=== PATIENT | female | born 2005 | race Caucasian/White ===

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

== ENCOUNTER 2024-09-02 10:26 | Emergency (ER) | payer OTHER, BC, SELFPAY ==
[2024-09-02 10:39] VITALS: BP 120/80; PULSE 89; TEMP 36.9; O2SAT 100
[2024-09-02 10:54] LABS: EDSTREPNEGPOS1 Negative (Negative)
--- NOTE | 2024-09-02 11:27 | ED.URI ---
HPI - URI/Sore Throat General Chief Complaint: Upper Respiratory Infection Stated Complaint: sorethroat Time Seen by Provider: 09/02/24 11:00 Source: patient and RN notes reviewed Mode of arrival: ambulatory Limitations: no limitations History of Present Illness HPI Narrative: 19-year-old female presents Express Care complaining of sore throat since this morning. Patient's reports currently seen an ENT for throat problem a she states she feels like she consult has a lump in her throat. She currently takes Pepcid and omeprazole along with Flonase prescribed by her ENT to help with her symptoms. Patient states this is different she reports her throat is sore and noticed white bumps on the roof of her mouth. Patient denies the bumps being painful. Patient denies any history of herpes the reported recently went on a trip for her per day and shared multiple drinks amongst people. Patient denies any other upper respiratory symptoms, cough, fever, chest pain, shortness of breath, or any other symptoms. Patient has not taken anything [id number]. Patient recently stated she had a scare for STD exposure he was seen by OBGYN and had testing done was told she did not have any STDs. Patient states she was not tested for herpes though. Patient denies any new concerns for STDs. Related Data Allergies Allergy/AdvReac Type Severity Reaction Status Date / Time metronidazole AdvReac Mild Palpitation Verified 09/02/24 10:38 s Review of Systems Review of Systems: CONSTITUTIONAL: Denies fever, chills, or sweats. EYES: Denies visual changes, redness, or discharge. ENT: Denies rhinorrhea, congestion, or otalgia. Positive for sore throat. CARDIOVASCULAR: Denies chest pain, palpitations, or edema. RESPIRATORY: Denies cough or dyspnea. GASTROINTESTINAL: Denies abdominal pain, nausea, vomiting, or diarrhea. GENITOURINARY: Denies dysuria or hematuria. SKIN: Denies rash or itching. MUSCULOSKELETAL: Denies back pain, joint pain, or myalgia. NEUROLOGIC: Denies headache, numbness, or weakness. PSYCHIATRIC: Denies anxiety or depression. All other systems reviewed are negative, except as documented in HPI. [facility], [facility] Past Medical History Medical History Allergic rhinitis Voice fatigue Throat clearing Sore throat Hoarseness of voice GERD (gastroesophageal reflux disease) Anxiety Family History Family History Other Anemia Anxiety Carcinoma of colon Cerebrovascular accident Hyperlipidemia Melanoma Myocardial infarct Seizure Social History Social History Smoking status: Never smoker Alcohol intake: never Do You Feel Safe in your Home?: Yes Lack of Transportation: No Lack of Food: Never True Current Housing: I Have Housing Concerned About Future Housing: No Difficulty Paying Gas/Electric Bills: No Difficulty Paying for Meds: No Education: High School Diploma/GED Difficulty w/ Childcare or Family Care: No Living arrangements: with family Comments At the time of my signature, I reviewed and agree with the nursing past medical, surgical, social, and family history. There is no relevant family history pertinent to the patient complaint. Exam Narrative: GENERAL: This is a well-nourished, well-developed adult, in no apparent distress. They are non ill-appearing, nontoxic appearing. HEAD: normocephalic, atraumatic. EYES: Sclera clear/white. Conjunctiva normal. Vision is grossly intact. Extraocular movements intact EARS: External ears normal, auditory canals clear and without drainage, TMs normal without perforation. Hearing grossly intact. NOSE: External nose normal with no obvious nasal discharge, nasal turbinates without redness, no rhinorrhea. THROAT: Mucous membranes moist, posterior pharynx with erythema, no swelling. Tonsils 2+ without redness or swelling. Uvula midline. Normal movement is soft palate. OROPHARYNX: There is vesicular grayish white papule papulovesicular lesions present to the patient's hard palate and soft palate. Lesions are nontender. There are less than 10. No lesions on posterior pharynx or tonsils. Good oral hygiene, no missing teeth, no gingivitis, tongue is normal. NECK: Neck supple, non-tender without lymphadenopathy, masses or thyromegaly. CARDIOVASCULAR: Regular rate and rhythm without murmurs, gallops, or rubs. RESPIRATORY: Clear to auscultation. Breath sounds equal bilaterally. No wheezes, rales, or rhonchi. SKIN: warm, Dry, intact with no suspicious lesions or rash, good texture and turgor. NEURO: awake, alert, and oriented to person, place and time. There were no obvious focal neurologic abnormalities. EXTREMITIES: No joint tenderness, effusion, or edema noted. BACK: Nontender without deformity. No CVA tenderness. Course Course Emergency Course: Portions of this record may have been created with voice recognition software Level of Care: Express Care Visit Vital Signs Vital signs: Vital Signs Temperature 98.4 F 09/02/24 10:39 Pulse Rate 89 09/02/24 10:39 Blood Pressure 120/80 09/02/24 10:39 Pulse Oximetry 100 09/02/24 10:39 Oxygen Delivery Room Air 09/02/24 10:39 Temperature 98.4 F 09/02/24 10:39 Pulse Rate 89 09/02/24 10:39 Blood Pressure 120/80 09/02/24 10:39 Pulse Oximetry 100 09/02/24 10:39 Oxygen Delivery Room Air 09/02/24 10:39 Reviewed MDM - URI/Sore Throat MDM Narrative Medical decision making narrative: Rapid strep is negative. Throat culture is pending. Given patient's recent risk factors, it was elected to swab for herpes simplex virus. Herpes virus culture is pending. Through shared decision it was elected the patient will decide if she would like to start suppressive therapy if she is concerned if it is herpes infection since it cannot be excluded and the culture will not result in time to start suppressive therapy. Advised patient she has 72 hours to start treatment. Acyclovir is sent to the pharmacy. Symptoms are consistent with herpangina infection. Discussed physical exam findings. Advised supportive measures and signs/symptoms to go to the ER. Pt is appropriate for outpt treatment and f/u. Differential Diagnosis Differential diagnosis: Likely upper respiratory infection, viral infection, pharyngitis and other (herpangina, herpes simplex virus) Lab Data Attestation: I reviewed the patient's lab results. Labs: Lab Results 09/02/24 Range/Units 10:52 POC Grp A Strep Screen Negative (Negative) Critical Care Time Critical Care Time Critical Care Time: No Discharge Plan Discharge Clinical Impression: Herpangina Patient Disposition: Home Condition: Stable Instructions: Pharyngitis (ED), Oral Herpes Infection (ED) Additional Instructions: Your rapid strep swab was negative today at [facility]. You will be notified in a few days if the culture comes back positive for strep, and appropriate antibiotics will be called in for you at that time. Your symptoms are likely due to a viral illness, which is not treated with antibiotics. Your Herpes culture is pending and you will be contacted with the results when it has resulted. Your symptoms are likely related to herpangina which is caused by the coxsackievirus. Take take acyclovir as directed. Viral symptoms can be present for up to 10-14 days. Take Tylenol or ibuprofen for fever or pain. Rest and stay hydrated. Practice good hand hygiene and avoid sharing drinks. Follow up with your PCP in 3-5 days if symptoms are not improving. Go to the ER immediately if you develop difficulty breathing or swallowing Patient Language: [place] Prescriptions: New acyclovir 400 mg tablet 400 mg PO TID 7 Days Qty: 21 0RF No Action fluticasone propionate 50 mcg/actuation spray,suspension 1 spray intranasal DAILY 30 Days Qty: 16 2RF Rx Instructions: administer into each nostril omeprazole 40 mg capsule,delayed release(DR/EC) 40 mg PO DAILY 30 Days Qty: 30 2RF famotidine 40 mg tablet 40 mg PO DAILY 30 Days Qty: 30 2RF Rx Instructions: to be used with meals at bed time Follow-up/Referrals: Quan Andrew MD [Primary Care Provider] - Time of Disposition: 11:13
--- OUTSIDE RECORDS SUMMARY | 2024-09-02 11:36 | XMS_ITS | Clinical Summary ---
Author Organization [facility] Address [address] [place] [address] Care Team Providers Care Electric Installer Name Role Phone Whitney Rajput Primary Care Provider [phone] Allergies No known active allergies Medications norethindrone-e .estradioL-iron (LO LOESTRIN FE) 1 mg-10 mcg (24)/10 mcg (2) tablet per tablet Take 1 tablet by mouth daily 84 tablet 3 5 Active clindamycin (CLEOCIN) 2 % vaginal creamIndication s:Bacterial Vaginosis 1 applicator full in vagina at bedtime once 40 g 5 Active Additional Information Patient not taking.Reported on 07/21/2024 omeprazole (PriLOSEC) 20 mg capsule Take 1 capsule (20 mg total) by mouth daily 5 Active Active Problems Problem Noted Date Diagnosed Date Hallux valgus 09/04/2016 Short stature (child) 02/21/2016 Overview (12/08/2022): Short compared to her 12 yr old, triplet sisters. Last Assessment & Plan: Good interval linear growth (two inches in six months) and progression of pubertal features; bone age predicts adult height ~ 5 feet 6- 7 inches (lower end of target height range based upon parents' adult heights); 1. Reassurance. 2. Expectant observation. 3. Return appointment in one year, sooner if questions or concerns arise. 4. I reviewed my impression and recommendations with mother at the time of the office visit and she was in agreement. Encounters Date Type Department Care Team Description 07/22/2024 Results [facility] [address] [place] [phone] Myra Ramírez, MARICEL Vaginitis panel Vaginal, N. gonorrhoeae/C. trachomatis Amplification Vaginal, RPR Blood, Additional followed-up results: 3 07/21/2024 7:20 PM CDT - 07/21/2024 11:59 PM CDT Hospital Encounter [address] [phone] Discharge Disposition: Discharge to home or self care 07/21/2024 3:30 PM CDT [facility] Visit [facility] [address] [place] [phone] Myra Ramírez NP Sweating increase (Primary Dx); Vaginal odor; Vaginal discharge; Routine screening for STI (sexually transmitted infection); Situational anxiety from Last 3 Months Immunizations Immunization Administration Dates Next Due DTaP 09/08/2008, 5,02/16/2004,12/16,2003 HPV, Quadrivalent 08/31/2015,05/03/2015,02/16/20 15 Hep A, Pediatric 12/28/2006,07/13/2005 Hep B, Adolescent or Pediatric 4,2003,2003,08/26 Hib (PRP-D) 11/12/2004, 4,2003,10/14 IPV 09/08/2008, 4,2003,10/14 Influenza, Quadrivalent, Suzy l Culture-based MDCK, Antibiotic Free, Intramuscular 02/19/2018 Influenza, Trivalent, IM (MDV) 02/02/2015 Influenza, Unspecified 02/03/2015,12/28/2006 MMR 09/06/2007,08/18/2004 Meningococcal MCV4P (Menactra) 10/10/2019,2014 PPD TEST 08/18/2004 Pneumococcal Conjugate, Unspecified 07/25,02/16/2004,2003,10/14 Tdap 02/15/2015 Varicella 09/06/2007,11/12/2004 Surgical History Surgery Date Site/Laterality Comments WISDOM TOOTH EXTRACTION 03/26/2020 - 03/25/2021 Medical History Medical History Date Comments Anxiety 2019 Acne Irregular menses Family History Medical History Relation Name Comments Stroke Maternal Grandfather Skin cancer Mother Cancer Mother's Sister Valarie Pastor Colon cancer Mother's Sister Valarie Pastor Lymphoma Mother's Sister Valarie Pastor Breast cancer Paternal Grandmother Linda Kemp Cancer Paternal Grandmother Linda Kemp Pneumonia Sister 1 Relation Name Status Comments Maternal Grandfather Mother Mother's Sister Valarie Pastor Paternal Grandmother Linda Kemp Sister 1 Alive Sister 2 Alive Sister 3 Alive Social History Tobacco Use Types Packs/Day Years Used Date Smoking Tobacco: Never Smokeless Tobacco: Never Tobacco Cessation:Counseling Given: Not Answered Comments:n/a, dont consume tobacco AUDIT-C Answer Date Recorded Q1: How often do you have a drink containing alc ohol? 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 Gender Identity Female 07/19/2022 3:02 PM CDT Sexual Orientation Not on file Occupation Industry Job Start Date Job End Date student Not on file Not on file Not on file Obstetrics History Para Term AB IAB SAB Ectopic Multiple Livin g Live Births 0 0 0 0 0 0 0 0 0 0 0 Last Filed Vital Signs Vital Sign Reading Time Taken Comments Blood Pressure 122/80 07/21/2024 3:32 PM CDT Pulse - - Temperature - - Respiratory Rate - - Oxygen Saturation - - Inhaled Oxygen Concentration - - Weight 60.8 kg (134 lb 1.6 oz) 07/21/2024 3:32 P M CDT Height 174 cm (5' 8.5) 07/21/2024 3:32 PM CDT Body Mass Index 20.09 07/21/2024 3:32 PM CDT Plan of Treatment Health Maintenance Due Date Last Done Comments Cervical Cancer Screening 2003 Depression Screening 2003 Meningococcal B Vaccine (1 o f 2 - Standard) 2019 Covid-19 Vaccine (2 - 2023-2 5 season) 2023 2020 Influenza Vaccine (Season Ended) 2024 02/19/2018, 02/03/2015, 02/02/2015, Additional history exists DTaP/Tdap/Td Vaccine (7 - Td or Tdap) 02/15/2025 02/15/2015, 09/08/2008, 02/13/2005, Additional history exists Regular Well Visit/Exam 18-64 04/22/2025 04/22/2024 Chlamydia and Gonorrhea (GC/ CT) Screening 07/21/2025 07/21/2024, 04/22/2024, 12/08/2022 Hepatitis B Screening Completed 02/16/2004 , 2003, 2003, Additional history exists Pneumococcal vaccine <65 Completed 005, 02/16/2004, 2003, Additional history exists Varicella Vaccines Completed 09/06/2007, 11/12/2004 HPV Vaccines Completed 08/31/2015, 10/2015, 02/15/2015 Meningococcal Vaccine Completed 10/10/2019, 015 Hepatitis C Screening Completed 07/21/2024 Procedures Procedure Name Priority Date/Time Associated Diagnosis Comments HEPATITIS B SURFACE ANTIGEN Routine 07/21/2024 4:02 PM CDT Routine screening for STI (sexually transmitted infection) HEPATITIS C ANTIBODY Routine 07/21/2024 4:02 PM CDT Routine screening for STI (sexually transmitted infection) HIV 1/2 ANTIBODY PLUS P24 ANTIGEN Routine 07/21/2024 4:02 PM CDT Routine screening for STI (sexually transmitted infection) RPR Routine 07/21/2024 4:02 PM CDT Routine screening for STI (sexually transmitted infection) N. GONORRHOEAE/C. TRACHOMATIS AMPLIFICATION Routine 07/21/2024 4:02 PM CDT Routine screening for STI (sexually transmitted infection) VAGINITIS PANEL Routine 07/21/2024 4:02 PM CDT Routine screening for STI (sexually transmitted infection) from Last 3 Months Results * N. gonorrhoeae/C. trachomatis Amplification Vaginal (07/21/2024 4:02 PM CDT) C. trachomatis Not Detected N. gonorrhoeae Not Detected [facility] Comment: Interpretive Data This assay detects Chlamydia trachomatis and Neisseria gonorrhoeae by nucleic acid amplification testing (NAAT). This assay has been cleared by the [place] Food and Drug administration. The performance characteristics of this test have been verified by the [facility] laboratory. The performance characteristics of this test have not been evaluated in individuals less than 14 years of age. Current Interpretive Data was last revised on 2023. Vaginal (None) 07/21/2024 4: 02 PM CDT 07/21/2024 6:56 PM CDT us Myra Ramírez NP LAB MICROBIOLOGY - GENERAL ORDERABLES Final Result Performing Organization Address City/[facility]/ZIP Co de Phone Number [facility] [address] Department [place] [address] * Vaginitis panel Vaginal (07/21/2024 4:02 PM CDT) Bacterial Vaginosis Not Detected Not Detected Comment:A negative result do es not preclude a possible infection. Results should be considered in conjunction with clinical presentation to determine the disease status. Fe group Not Detected Not Detected [facility] Fe glabrata/ krusei Not Detected Not Detected [facility] Trichomonas DNA Not Detected Not Detected [facility] Vaginal 07/21/2024 4:02 PM CDT 07/21/2024 6:53 PM CDT us Myra Ramírez NP LAB MICROBIOLOGY - GENERAL ORDERABLES Final Result Performing Organization Address City/[facility]/ZIP Co de Phone Number [facility] [address] [place] [address] * HIV 1/2 Antibody plus p24 Antigen Blood (07/21/2024 4:02 PM CDT) [facility] HIV 1/2 ab + p24 ag Nonreactive Nonreactive Comment: Nonreactive for HIV-1 antigen and HIV-1/HIV-2 antibodies. No laboratory evidence of HIV infection. If acute HIV infection is suspected, consider testing for HIV-1 RNA. Blood 07/21/2024 4:02 PM CDT 07/21/2024 7:12 PM CDT us Myra Ramírez NP LAB MICROBIOLOGY - GENERAL ORDERABLES Final Result Performing Organization Address [facility] Co de Phone Number [facility] [address] [facility] [place] [address] * Hepatitis C antibody Blood (07/21/2024 4:02 PM CDT) [facility] Hep C Ab Nonreactive Nonreactive Comment: Interpretive Data Nonreactive: Antibodies to HCV not detected. Does NOT exclude the possibility of recent exposure to HCV. Equivocal: Equivocal for HCV antibodies. Supplemental molecular testing will be automatically performed to determine infection status in accordance with current CDC screening recommendations. Reactive: Positive for HCV antibodies. This may represent current or past HCV infection. Supplemental molecular testing will be automatically performed to determine current infection status in accordance with current CDC screening recommendations. Interpretive data was last revised on 2019. Blood 07/21/2024 4:02 PM CDT 07/21/2024 7:13 PM CDT us Myra Ramírez NP LAB MICROBIOLOGY - GENERAL ORDERABLES Final Result Performing Organization Address City/[facility]/ZIP Co de Phone Number [facility] [address] [facility] [place] [address] * RPR Blood (07/21/2024 4:02 PM CDT) [facility] RPR Nonreactive Nonreactive Comment:Testing performed by : [facility], [address] [facility], [place]., [address] Blood 07/21/2024 4:02 PM CDT 07/21/2024 11:29 PM CDT us Myra Ramírez NP LAB MICROBIOLOGY - GENERAL ORDERABLES Final Result [facility] [address] Department [place] [address] * Hepatitis B Surface Antigen Blood (07/21/2024 4:02 PM CDT) HepBsAg Nonreactive Nonreactive Blood 07/21/2024 4:02 PM CDT 07/21/2024 7:13 PM CDT us Myra Ramírez NP LAB MICROBIOLOGY - GENERAL ORDERABLES Final Result Performing Organization Address City/State/[facility] Co de Phone Number [facility] [address] [place] [address] from Last 3 Months Insurance [employer] Member Subscriber Plan / Payer (Ef fective 2022-Present) Name:Smiley Castañeda Relation to Subscriber:Child Name:SHELBY PASTOR Date of :1972 (Home) Address: [facility] [place] [address] [place] [address] Payer ID:[id number] (NAIC) Type:[facility] Address: [facility] [id number] [address] [facility] ACC[facility] Member Subscriber Plan / Payer (Ef fective 2022-Present) Name:Smiley Castañeda Raghu Relation to Subscriber:Child Name:Shelby Pastor Date of :1972 (Home) Address: [address] [place] [address] Payer ID:[id number] (NAIC) Type:[facility] Address: [address] Care Teams Electric Installer Relationship Specialty Start Date End Date Whitney Rajput [address] [facility] [address] [place] [address] PCP - General Drill Runner 12/08/22
--- OUTSIDE RECORDS SUMMARY | 2024-09-02 11:36 | XMS_ITS | Encounter Summary ---
Author Organization [facility] Healthcare Address [address] [place] [address] Care Team Providers Care Nutrition Professor Name Role Phone Whitney Rajput Primary Care Provider [phone] Encounter Details Date Type Department Care Team (Late st Contact Info) Description 07/22/2024 Results [facility] [place] [address] [place] [address] [address] [place] [address] Myra Ramírez, MARICEL [address] [place] [address] [address] [place] [address] Vaginitis panel Vaginal, N. gonorrhoeae/C. trachomatis Amplification Vaginal, RPR Blood, Additional followed-up results: 3 Social History Tobacco Use Types Packs/Day Years Used Date Smoking Tobacco: Never Smokeless Tobacco: Never Comments:n/a, dont consume t obacco AUDIT-C Answer Date Recorded Q1: How often do you have a drink containing alc ohol? 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 [address] [place] [address] PCP - General Clinical Lab Assistant 12/08/22 documented as of this encounter
--- OUTSIDE RECORDS SUMMARY | 2024-09-02 11:36 | XMS_ITS | Clinical Summary ---
Author Organization [facility] Address [address] [place] [address] Care Team Providers Care Genetic Scientist Name Role Phone Vita Cho MD Primary Care Provider [phone] Source Comments [facility],non-owned Affiliates and Associated Physician Practices is amultiple site organization consisting of ambulatory clinics and hospital sitesin [place], [place], [place] and [place]. This disclosure is being madepursuant to the Care Everywhere program and may not contain all information available regarding this patient. Last updated 17.[facility] Allergies No known active allergies Medications * Be aware that medications may not be up to date on this document. Alwaysverify current medications with the patient. No known medications Active Problems Problem Noted Date Diagnosed Date Hallux valgus 09/04/2016 Short stature (child) 02/21/2016 Overview (02/21/2016): Short compared to her 12 yr old, triplet sisters. Assessment & Plan (08/28/2016 4:00 PM CDT): Good interval linear growth (two inches in six months) and progression of pubertal features; bone age predicts adult height ~ 5 feet 6-7 inches (lower end of target height range based upon parents' adult heights); 1. Reassurance. 2. Expectant observation. 3. Return appointment in one year, sooner if questions or concerns arise. 4. I reviewed my impression and recommendations with mother at the time of the office visit and she was in agreement. 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 1. Bone age radiograph. 2. Expectant observation. 3. I reviewed my impression and recommendations with mother at the time of the office visit and she was in agreement. 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 (AF LURIA, FLUZONE TRIVALENT; 6MO+) (IIV3) 02/02/2015 DTaP VACCINE IM (6wk-6yrs) 09/08/2008,,02/16/2004,12/16,2003 HEP A PEDS 2 DOSE 12/28/2006,07/13/2005 HEP B VACCINE, PED/ADOL 02/16/2004,12/16,2003,08/26 HIB BOOSTER 11/12/2004, 4,2003,10/14 Human Papilloma Virus Jovita valent Vaccine 08/31/2015,05/03/2015,02/15/2015 INFLUENZA VACCINE 02/03/2015,12/28/2006 INFLUENZA VACCINE, CELL CULT URE, QUADR. (FLUCELVAX QUADRIVALENT; 6MO+), 0.5 ML (CCIIV4) 02/19/2018 MENINGOCOCCAL ACWY (MCV4P) VAC IM 10/10/2019, MMR 09/06/2007,08/18/2004 PNEUMOCOCCAL CONJ, PEDS 08/18/2004,02/15,2003,10/14 POLIO IPV 09/08/2008, 4,2003,10/14 PPD 08/18/2004 TDAP (7yrs+) 02/15/2015 VARICELLA 09/06/2007,11/12/2004 Family History Medical History Relation Name Comments Other Father completed linea r growth ~ age 21-22 yr. 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 Gender Identity Not on file Sexual Orientation Not on file Last Filed Vital Signs Vital Sign Reading Time Taken Comments Blood Pressure 105/69 10/14/2020 9:20 AM CDT Pulse 57 10/14/2020 9:20 AM CDT Temperature 35.7 C (96.3 F) 10/14/2020 9:20 AM CDT Respiratory Rate 20 08/28/2016 3:34 PM CDT Oxygen Saturation 98% 02/11/2020 2:17 PM LABORATORY TECHNOLOGY TEACHER Inhaled Oxygen Concentration - - Weight 57.8 kg (127 lb 6.4 oz) 10/14/2020 9:20 A M CDT Height 172.2 cm (5' 7.8) 10/14/2020 9:20 AM CDT Body Mass Index 19.49 10/14/2020 9:20 AM CDT Plan of Treatment Health Maintenance Due Date Last Done Comments PAP SMEAR 2003 HIV SCREENING 08/13/2018 CHLAMYDIA/GONORRHEA SCREENING 2019 MENINGOCOCCAL (Group B) VACC INE SHARED DECISION-MAKING (1 of 2 - Standard) 2019 HEPATITIS C SCREENING 08/09/2021 COVID-19 VACCINE (2 - 2023-2 5 season) 2023 2020 DEPRESSION SCREENING 03/26/2024 INFLUENZA VACCINE (Season Ended) 2024 02/19/2018, 02/03/2015, 02/02/2015, Additional history exists DTAP/TDAP/TD VACCINES (7 - T d or Tdap) 02/15/2025 02/15/2015, 09/08/2008, 02/13/2005, Additional history exists ZOSTER VACCINE (1 of 2) 08/13/2053 HEPATITIS B VACCINE Completed 02/16/2004, 2003, 2003, Additional history exists PNEUMOCOCCAL VACCINE Completed 08/18/2004, 02/16/2004, 2003, Additional history exists HIB VACCINE Completed 11/12/2004, 01/25, 2003, Additional history exists HPV VACCINE Completed 08/31/2015, 10/2015, 02/15/2015 MENINGOCOCCAL GROUPS A/C/Y/W VACCINE Completed 10/10/2019, 02/15/2015 Goals Goal Patient Goal Type Associated Problems Recent Progress Patient-Stated? Author Use safety retraint in car Lifestyle On track( 021 9:21 AM CDT) No Greta Olvera RN Insurance [employer] Care Teams Genetic Scientist Relationship Specialty Start Date End Date Vita Cho MD PCP - General Pediatrics 02/16/14
--- OUTSIDE RECORDS SUMMARY | 2024-09-02 11:36 | XMS_ITS | Referral Summary ---
Author Organization [facility] Address [address] [place] [id number] Care Team Providers Care Custodian Athletic Equipment Name Role Phone Whitney Rajput Primary Care Provider [phone] Encounters Date Type Department Care Team Description 07/22/2024 Results [facility]Up [facility] [address] [place] [phone] Myra Ramírez NP Vaginitis panel Vaginal, N. gonorrhoeae/C. trachomatis Amplification Vaginal, RPR Blood, Additional followed-up results: 3 07/21/2024 7:20 PM CDT - 07/21/2024 11:59 PM CDT Hospital Encounter [id number] [place] [address] Discharge Disposition: Discharge to home or self care 07/21/2024 3:30 PM CDT Office Visit [facility] [address] [place] [phone] Myra Ramírez NP Sweating increase (Primary Dx); Vaginal odor; Vaginal discharge; Routine screening for STI (sexually transmitted infection); Situational anxiety from Last 3 Months Allergies No known active allergies Medications norethindrone-e [...] office visit and she was in agreement. 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 gonorrhoeae Not Detected [facility] Comment: Interpretive Data This assay detects Chlamydia trachomatis and Neisseria gonorrhoeae by nucleic acid amplification testing (NAAT). This assay has been cleared by the [place] Food and Drug administration. The performance characteristics of this test have been verified by the [facility] laboratory. The performance characteristics of this test have not been evaluated in individuals less than 14 years of age. Current Interpretive Data was last revised on 2023. Vaginal (None) 07/21/2024 4: 02 PM CDT 07/21/2024 6:56 PM CDT Myra Ramírez NP LAB MICROBIOLOGY - GENERAL ORDERABLES Final Result [facility] [address] [place] [address] * Vaginitis panel Vaginal (07/21/2024 4:02 PM CDT) Bacterial Vaginosis Not Detected Not Detected Comment:A negative result do es not preclude a possible infection. Results should be considered in conjunction with clinical presentation to determine the disease status. Fe group Not Detected Not Detected [facility] Fe glabrata/ krusei Not Detected Not Detected [facility] Trichomonas DNA Not Detected Not Detected [facility] Vaginal 07/21/2024 4:02 PM CDT 07/21/2024 6:53 PM CDT Myra Ramírez NP LAB MICROBIOLOGY - GENERAL ORDERABLES Final Result Performing Organization Address [facility] Co de Phone Number [facility] [address] [facility] [place] [address] * HIV 1/2 Antibody plus p24 Antigen Blood (07/21/2024 4:02 PM CDT) HIV 1/2 ab + p24 ag Nonreactive Nonreactive Comment: Nonreactive for HIV-1 antigen and HIV-1/HIV-2 antibodies. No laboratory evidence of HIV infection. If acute HIV infection is suspected, consider testing for HIV-1 RNA. Blood 07/21/2024 4:02 PM CDT 07/21/2024 7:12 PM CDT us Myra Ramírez NP LAB MICROBIOLOGY - GENERAL ORDERABLES Final Result Performing Organization Address [facility] de Phone Number [facility] [address] [facility] [place] [address] * Hepatitis C antibody Blood (07/21/2024 4:02 PM CDT) Hep C Ab Nonreactive Nonreactive Comment: Interpretive [...] GENERAL ORDERABLES Final Result Performing Organization Address [facility] Co de Phone Number [facility] [address] [facility] [place] [address] * RPR Blood (07/21/2024 4:02 PM CDT) RPR Nonreactive Nonreactive Comment:Testing performed by : [facility], [address] [place]., [address] Blood 07/21/2024 4:02 PM CDT 07/21/2024 11:29 PM CDT us Myra Ramírez NP LAB MICROBIOLOGY - GENERAL ORDERABLES Final Result [facility] [address] [place] [address] * Hepatitis B Surface Antigen Blood (07/21/2024 4:02 PM CDT) HepBsAg Nonreactive Nonreactive Blood 07/21/2024 4:02 PM CDT 07/21/2024 7:13 PM CDT us Myra Ramírez NP LAB MICROBIOLOGY - GENERAL ORDERABLES Final Result [facility] [address] [place] [address] from Last 3 Months Insurance [facility] Member Subscriber Plan / Payer (Ef fective 2022-Present) Name:Smiley Castañeda Relation to Subscriber:Child Name:SHELBY PASTOR Raghu Date of :1972 (Home) Address: [address] [place], [place] [address] [place] [place] [address] Payer ID:[id number] (NAIC) Type:[facility] Address: [phone] [facility] Member Subscriber Plan / Payer (Ef fective 2022-Present) Name:Smiley Castañeda Relation to Subscriber:Child Name:Shelby Pastor Date of :1972 (Home) Address: [address] [place] [address] Payer ID:[id number] (NAIC) Type:[facility] Address: [phone] Care Teams Custodian Athletic Equipment Relationship Specialty Start Date End Date Whitney Rajput [address] [facility] [address] [place] [address] PCP - General General Assignment Reporter 12/08/22
[2024-09-05 16:03] LABS: Source NOT GIVEN
== END 2024-09-02 11:16 | disposition home or self-care (01) ==
PROVIDERS: PCP Family Medicine
DX: B08.5 Enteroviral vesicular pharyngitis (principal); K21.9 Gastro-esophageal reflux disease without esophagitis
CPT/HCPCS: 87081; 87140; 87255; 87880; 99213; G0463